=== PATIENT | male | born 1950 | race Caucasian/White ===

== ENCOUNTER 2016-07-18 09:36 | Emergency (ER) | payer OTHER ==
[2016-07-18 09:43] VITALS: BP 152/81; TEMP 98.9; BMI 25.1
--- NOTE | 2016-07-18 10:00 | ED.PDOC ---
General ED Provider: Dr. COREY SHARIF JR Chief Complaint: Earache Stated Complaint: pain to left ear--pain has worsened this past weekend--pain started to rt ear which is now better--is bothered by left ear pain now--has has sinus issues in past[ End ]for months 98.9 65 16 94% 152/81 08/27 Time Seen by Physician: 09:59 Mode of Arrival: Walk-In Information Source: Patient Exam Limitations: No limitations Nursing and Triage Documentation Reviewed and Agree: No Review of Systems - Review Of Systems Constitutional: Reports: No symptoms Eyes: Reports: No symptoms Ears, Nose, Mouth, Throat: Reports: Ear pain Respiratory: Reports: No symptoms Cardiac: Reports: No symptoms GI: Reports: No symptoms : Reports: No symptoms Musculoskeletal: Reports: No symptoms Skin: Reports: No symptoms Neurological: Reports: No symptoms Endocrine: Reports: No symptoms Hematologic/Lymphatic: Reports: No symptoms All Other Systems: Other Past Medical History - Past Medical History Endocrine: Reports: None Cardiovascular: Reports: None Respiratory: Reports: Other (left ear pain) Hematological: Reports: None Gastrointestinal: Reports: Gallstones Genitourinary: Reports: None Neuro/Psych: Reports: None Musculoskeletal: Reports: None Cancer: Reports: None - Surgical History General Surgical History: Reports: Cholecystectomy, Tonsillectomy, Other (sinus surg) - Family History Family History: Reports: None - Social History Smoking Status: Current every day smoker, Heavy tobacco smoker Hx Substance Use: No Alcohol Screening: Occasionally Physical Exam - Physical Exam Appearance: Well-appearing Pain Distress: Mild Eyes: KATIA ENT: Nose normal, Oropharynx normal, Erythema (otitis externa bilaterally with small abrasions) Neck: Supple Respiratory: Airway patent, Breath sounds clear, Breath sounds equal, Respirations nonlabored Cardiovascular: RRR, Pulses normal, No rub, No murmur GI/: Soft, Nontender, No masses, Bowel sounds normal, No Organomegaly Musculoskeletal: Normal strength, ROM intact, No edema, No calf tenderness Skin: Warm, Dry, Normal color (note skin lesions right neck posteriorly right nasal bride x2 right ear helix- none appear worrisome but would have derm eval) Neurological: Sensation intact, Motor intact, Reflexes intact, Cranial nerves intact, Alert, Oriented Psychiatric: Affect appropriate, Mood appropriate Critical Care Note - Critical Care Note Total Time (mins): 0 Course - Course Vital Signs: Temp Pulse Resp BP Pulse Ox 07/18/16 09:36 98.9 F 65 16 152/81 H 94 L Departure - Departure Time of Disposition: 10:08 Disposition: HOME SELF-CARE Discharge Problem: Otitis externa Qualifiers: Otitis externa type: unspecified type Laterality: bilateral Chronicity: acute Qualifier Code: (H60.503) Unspecified acute noninfective otitis externa, bilateral Instructions: Otitis Externa (ED), Skin Cancer Prevention (ED), Atypical Mole ( ED) Condition: Good Pt referred to PMD for follow-up: Yes Additional Instructions: recommend non sedating antihistamine such as claritin zyrtec or lesvia Benadryl also would work(or chlortrimeton) but causes drowsiness use antihistamine for any congestion ear drops for ear inflammation may use antibiotic Keflex if symptoms not resolved over 2-3 days would have follow up for skin lesions consider dermatology evaluation may follow up with [facility] for referral Prescriptions: Cephalexin [Keflex] 500 mg PO QID #40 capsule Neomycin/Polymyxin B/Hc Otic [Cortisporin Otic Susp] 4 drop OT QID #1 bottle Allergies/Adverse Reactions: Allergies No Known Allergies Allergy (Unverified 07/18/16 09:45) Home Medications: Ambulatory Orders Cephalexin [Keflex] 500 mg PO QID #40 capsule 07/18/16 Neomycin/Polymyxin B/Hc Otic [Cortisporin Otic Susp] 4 drop OT QID #1 bottle 04/05
== END 2016-07-18 10:20 | disposition home or self-care (01) ==
LOC: ED 09:36
DX: H60.503 Unspecified acute noninfective otitis externa, bilateral (principal); L98.9 Disorder of the skin and subcutaneous tissue, unspecified; F17.210 Nicotine dependence, cigarettes, uncomplicated
CPT/HCPCS: 99282